=== PATIENT | male | born 1955 | race African-American/Black ===

== ENCOUNTER → 2016-10-24 | Outpatient (CLI) | payer BC ==
--- NOTE | 2016-10-24 16:33 | CARD ---
APPROVED REPORT INDICATION Beningn essential HTN Reason : Patient complained of pain PROCEDURE The patient underwent an exercise Stress Test using the Fuad protocol. Blood pressure, heart rate, a nd EKG were monitored. An Echocardiogram was performed by submarine cable equipment technician in four stages in quad fashion. At peak stress four se lected images were obtained and placed side by side with resting images for comparison. STRESS ECHO FINDINGS The resting Echocardiogram showed normal left ventricular contractility with an estimated Ejection Fr action of about 55 %. Normal augmentation of myocardial wall segments using a 16 segment model. Test Type: Exercise Stress Nurse/Tech: Nancy Tate R.N. Test Indications: shortness of breath Cardiac History and Allergies: htn, Medications: beta alanis, amlodipine Resting ECG: sr Resting Heart Rate: 60 bpm Resting Blood Pressure: 135/67mmHg Pretest Chest Pain: No chest pain Nurse/Tech Notes lungs cta, heart tones regular, good radial pulse Stress Symptoms No chest pain or symptoms. POST EXERCISE Reason for Termination: Reached target heart rate Target HR: Yes Max HR: 155 bpm 97% of Maximum Predicted HR: 160 bpm Exercise duration: 9:48 min:sec, 4 Stage Exercise capacity: 10.1METs Max Blood Pressure: 223/98mmHg Blood Pressure response to exercise: Normal blood pressure response during stress. Heart Rate response to exercise: normal Chest Pain: No. Arrhythmia: Yes. unifocal PVCs noted throughout exercise and recovery ST Change: No. INTERPRETATION Stress EKG Conclusion: Negative for ischemia. <Conclusion> Normal resting baseline echocardiogram with normal wall motion. EF 55% Normal stress echo with EF > 60% and normal wall motion. Images obtained at less than peak stress, bu t grossly normal wall motion/function at stress. Good exercise capacity with 10 Mets achieved.
== END | disposition home or self-care (01) ==
LOC: ECHO 13:32
PROVIDERS: ATTEND Internal Medicine Cardiovascular Disease
DX: I10 Essential (primary) hypertension (principal)
CPT/HCPCS: 93017; 93350

== ENCOUNTER → 2016-12-30 | Outpatient (CLI) | payer BC ==
[~2016-12-30] MED LIST: GADOBUTROL 10 MMOL/10 ML VIAL IV ONE
--- NOTE | 2016-12-30 11:27 | RAD ---
INDICATION: Elevated FSH and LH levels. TECHNIQUE: Whole brain sagittal T1, axial T1, axial T2, axial FLAIR, axial T2 gradient, diffusion imaging with ADC map, and postcontrast axial series are provided. Thin imaging through the sella includes coronal and sagittal precontrast and postcontrast T1 series. 9 mL of intravenous Gadavist was administered. FINDINGS: The ventricles and sulci are within normal limits for age. FLAIR hyperintensities in the supratentorial white matter are not specific but most suggestive of minimal small vessel ischemic disease. There is no acute intracranial hemorrhage or extra-axial fluid collection. There is no mass effect or midline shift. There is no restricted diffusion to suggest an acute infarct. Sagittal midline structures are unremarkable. Intracranial flow voids are preserved. There is a retention cyst in the left maxillary sinus with minimal maxillary mucosal thickening and ethmoid mucosal thickening bilaterally. Whole brain postcontrast imaging demonstrates no pathologic enhancement. Thin imaging through the sella demonstrates no contour abnormality. Infundibulum is in the midline. There is no suprasellar mass. There is a 2 mm questionable hypoenhancement within the far lateral left pituitary, small microadenoma cannot be excluded. There is no cavernous sinus extension. IMPRESSION: 1. 2 mm questionable hypoenhancing lesion within the far left pituitary, small microadenoma cannot be excluded. 2. Brain parenchymal volume loss and minimal probable small vessel ischemic disease. Electronically signed by: Rickie Clemens MD (12/30/2016 11:23 AM) [id number]
== END | disposition home or self-care (01) ==
LOC: MRI 08:58
PROVIDERS: ATTEND Urology
DX: E34.9 Endocrine disorder, unspecified (principal)
CPT/HCPCS: 70553

== ENCOUNTER → 2017-10-13 | Outpatient (CLI) | payer BC | END | disposition home or self-care (01) | LOC: KCIC 09:49 | DX: M17.11 Unilateral primary osteoarthritis, right knee (principal); M11.261 Other chondrocalcinosis, right knee | CPT/HCPCS: 73564 ==

== ENCOUNTER → 2019-08-23 | Outpatient (CLI) | payer BC ==
[2017-03-25 11:27] VITALS: BP 138/64
[~2019-08-23] MED LIST changes: +AMLO10TA8 PO; +ASPI-630 PO; +ATOR40TA59 PO; +AZEL137S3 NS; +CALC1CAP7 PO; +CYCL10TA2 PO; +FLUT9.9S NS; -GADOBUTROL 10 MMOL/10 ML VIAL IV ONE; +METO-269 PO; +NAPR220C4 PO; +TAMS0.4C2 PO
--- NOTE | 2019-08-23 16:04 | KCIC ---
MR of the right knee HISTORY: Right knee pain after a fall 3 days ago. TECHNIQUE: Routine multiplanar sequences are obtained. FINDINGS: Mild motion degradation. Some sequences were repeated. Degenerative tear of the medial meniscus. Some meniscal tissue is displaced into the tibial recess. Degenerative tear of the lateral meniscus. Anterior cruciate ligament is poorly seen. Chronic rupture is suspected. Buckling of the posterior cruciate ligament which is intact. Proximal medial collateral ligament is thick and somewhat ill-defined compatible with sprain or partial tearing, indeterminate age. The deep capsular meniscofemoral attachment is also thick and heterogeneous compatible with sprain or partial tearing. Iliotibial band unremarkable. Fibular collateral ligament demonstrates mild proximal thickening, but is intact. The popliteus tendon demonstrates some increased heterogeneous signal, likely due to sprain or degeneration. No disruption. The extensor mechanism appears intact. Large joint effusion with synovitis. Small Kimbrough's cyst. There is some disorganized fluid tracking along the posterior popliteus and soleus muscles. This could indicate acute posterolateral corner ligament injury. Generalized multi compartmental DJD. This is most severe at the posterior weightbearing aspect of the lateral joint compartment with full-thickness chondral loss and subchondral bone surface flattening. Severe chondral thinning at the weightbearing medial femoral condyle. Moderate to severe degenerative chondromalacia at the patellofemoral joint. Limited millimeter osteochondral body identified within the intracondylar notch. No evidence of acute fracture. No evidence of aggressive bone destruction. IMPRESSION: 1. Medial meniscal tear. 2. Lateral meniscal tear. 3. Chronic anterior cruciate ligament tear. 4. Partial tearing or sprain of the proximal medial collateral ligament. 5. Severe DJD. Osteochondral loose body in the intercondylar notch. 6. Large joint effusion with synovitis. 7. Fluid or hemorrhage tracking along the posterolateral knee, nonspecific but can be associated with posterolateral corner ligament injury. Electronically signed by: Randolph Ledesma MD (08/23/2019 4:02 PM) [id number]
== END | disposition home or self-care (01) ==
LOC: KCIC MRI 14:26
PROVIDERS: ATTEND Family Medicine
DX: S83.511A Sprain of anterior cruciate ligament of right knee, initial encounter (principal); S83.241A Other tear of medial meniscus, current injury, right knee, initial encounter; S83.281A Other tear of lateral meniscus, current injury, right knee, initial encounter; M25.461 Effusion, right knee; M17.11 Unilateral primary osteoarthritis, right knee; M71.21 Synovial cyst of popliteal space [Baker], right knee; X58.XXXA Exposure to other specified factors, initial encounter; Y93.89 Activity, other specified; Y92.89 Other specified places as the place of occurrence of the external cause; Y99.8 Other external cause status
CPT/HCPCS: 73721

== ENCOUNTER → 2021-07-23 | Outpatient (CLI) | payer BC ==
[2017-03-25 11:27] VITALS: BP 138/64
[~2021-07-23] MED LIST changes: +AMLO-187 PO; -AMLO10TA8 PO; +CYCL10TA19 PO; -CYCL10TA2 PO
--- NOTE | 2021-07-23 13:36 | RAD ---
MR#: [id number] Date of Study: 07/23/2021 Ordering Physician: MARY KELLY, Referring Physician: GILSON SANZ Tech: RT Narinder (R) (N) APPROVED REPORT Test Type: Exercise Stress Nurse/Tech: Carol Ann Griffith R.N. Test Indications: MILTON Cardiac History: smoker Medications: See Electronic Medical Record Medical History: See Electronic Medical Record Resting ECG: SB Resting Heart Rate: 49 bpm Resting Blood Pressure: 119/65mmHg Pretest Chest Pain: No chest pain Nurse/Tech Notes S1S2, lungs CTA Consent: The procedure was explained to the patient in lay terms. Informed consent was witnessed. Patel eout was entered into [employer]. History and Stress Test performed by RT Narinder (R) (N) POST EXERCISE Reason for Termination: Reached target heart rate Target HR: Yes Max HR: 133 bpm 102% of Maximum Predicted HR: 130 bpm Exercise duration: 9:32 min:sec, 3 Stage Exercise capacity: 10.0METs Max Blood Pressure: 190/88mmHg Blood Pressure response to exercise: Normal blood pressure response during stress. Heart Rate response to exercise: wnl Chest Pain: No. Arrhythmia: No. ST Change: Yes. non diagnostic changes INTERPRETATION Stress EKG Conclusion: Baseline EKG showed sinus rhythm. No ischemic changes at peak stress. No arr hythmias. Imaging Protocol IMAGE PROTOCOL: Rest Tc-99m/stress Tc-99m 1 day Rest: Stress: Viability: Radiopharm.Tc99m VdodmuakrXm09p Sestamibi [id number] 32mCi Duration 15min. 15min. Img Date 07/23/2021 07/23/2021 Inj-Img [id number]. 60min. Rest Admin Site:IV - Left AntecubitalAdministrator: RT Narinder (R)(N) Stress Admin Site: IV - Left AntecubitalAdministrator: RT Saravanan (Criselda)(N) STRESS DATA End Diast. Vol.125.0mlLVEDV index BSA58.0ml End Syst. Vol.40.0mlLVESV index BSA19.0ml Myocardial Twxw664.0gEject. Nbnrobfz39.0% Stress Scores Regional WT2.00Summed WT13.00 Regional WM0.00Summed WM0.00 Study quality was good. Left Ventricular size was Normal at Rest and Stress. Lung uptake was . Left Ventricular ejection fraction is 68%. The rest and stress images show normal perfusion, normal contraction and thickening. LV Perf. Quant 17 Seg. SSS3.00 17 Seg. SRS3.00 17 Seg. SDS0.00 Stress Defect Extent (% LAD)0.00Rest Defect Extent (% LAD)0.00Rev. Defect Extent (% LAD)0.00 Stress Defect Extent (% LCX) 26.30Rest Defect Extent (% LCX)11.30Rev. Defect Extent (% LCX)2.50 Stress Defect Extent (% RCA)0.00Rest Defect Extent (% RCA)0.00Rev. Defect Extent (% RCA)0.00 Stress Defect Extent (% RODY)4.60Rest Defect Extent (% RODY)3.70Rev. Defect Extent (% RODY)0.40 Conclusion 1. Treadmill exercise cardioisotope stress test did not show any evidence of ischemia or infarct. 2. Normal left ventricular systolic function with ejection fraction calculated at 68%. 3. Low risk for cardiac events. Signed by : Shivam Pillai, Electronically Approved : 07/23/2021 13:35:44
== END ==
LOC: NM 08:29
PROVIDERS: ATTEND Internal Medicine Cardiovascular Disease
DX: R06.09 Other forms of dyspnea (principal)
CPT/HCPCS: 78452; 93017; A9500